=== PATIENT | female | born 1985 | race Caucasian/White ===

== ENCOUNTER → 2024-04-28 | Outpatient (CLI) | payer OTHER, SELFPAY ==
[2024-04-28 18:56] LABS: Vitamin D,25 Hydroxy 11.8 ng/mL
[2024-04-28 20:07] LABS: Ferritin 95 ng/mL (8-252); Free T3 2.6 pg/mL (2.18-3.98); T4 Free Direct 1.06 ng/dL (0.76-1.46); Thyroid Stim Hormone (TSH) 0.839 uIU/mL (0.358-3.740)
[2024-04-30 09:07] LABS: Thyroid Peroxidase AB 11 IU/mL (0-34)
== END | disposition home or self-care (01) ==
PROVIDERS: PCP Nurse Practitioner Family; Referring Provider Physician Assistant Medical; Visit Provider Physician Assistant Medical
DX: L70.0 Acne vulgaris (principal); L81.1 Chloasma
CPT/HCPCS: 36415; 82306; 82652; 82728; 84439; 84443; 84481; 86376